=== PATIENT | female | born 1955 | race Caucasian/White ===

== ENCOUNTER 2019-02-16 19:10 | Emergency (ER) | payer OTHER ==
[~2019-02-16] VITALS: Ht 154.9 cm; Wt 91.2 kg
[2019-02-16] MEDS ORDERED: CIPRO500 MG (19:42)
[2019-02-16] MEDS ORDERED: FLAGYL500MG (19:42)
[2019-02-16] MEDS ORDERED: GLIMEPIRIDE4 MG (19:42)
[2019-02-16] MEDS ORDERED: JANUMET 50-1,01 EACH (19:43)
== END 2019-02-16 23:59 | disposition home or self-care (01) ==
LOC: ER 19:10
DX: L02.31 Cutaneous abscess of buttock (principal)

== ENCOUNTER 2023-10-28 08:26 | Outpatient (CLI) | payer OTHER ==
[~2023-10-28 08:26] MED LIST: CIPRO500 MG; FLAGYL500MG; GLIMEPIRIDE4 MG; JANUMET 50-1,01 EACH
== END 2023-10-28 08:28 | disposition home or self-care (01) ==
LOC: SONOGRAMA 08:26
PROVIDERS: ATTEND Pathology Anatomic Pathology & Clinical Pathology
DX: E04.2 Nontoxic multinodular goiter (principal); D44.0 Neoplasm of uncertain behavior of thyroid gland